=== PATIENT | female | born 1970 | race Caucasian/White ===

== ENCOUNTER → 2019-05-21 09:02 | Outpatient (CLI) | payer OTHER, SELFPAY ==
[2019-05-21 14:30] LABS: Alanine Aminotransferase 15 U/L (12-78); Albumin Level 3.8 gm/dL (3.4-5.0); Alkaline Phosphatase 71 U/L (46-116); Aspartate Amino Transferase 13 U/L (15-37); Bilirubin,Direct 0.1 mg/dL (0.0-0.2); Bilirubin,Indirect 0.3 mg/dL (0.0-0.9); Bilirubin,Total 0.4 mg/dL (0.2-1.0); Chol/HDL Ratio 3.4 (1-3.5); Cholesterol 153 mg/dL (140-200); HDL Cholesterol 45 mg/dL (29-89); LDL Cholesterol 90 mg/dL (0-130); Triglycerides 91 mg/dL (30-200); VLDL Cholesterol 18 mg/dL (0-40)
== END ==
PROVIDERS: PCP Nurse Practitioner Family; Visit Provider Urology
DX: I25.10 Atherosclerotic heart disease of native coronary artery without angina pectoris (principal); E78.2 Mixed hyperlipidemia; I11.9 Hypertensive heart disease without heart failure
CPT/HCPCS: 36415; 80061; 80076

== ENCOUNTER → 2020-04-22 08:17 | Outpatient (CLI) | payer OTHER, SELFPAY ==
[2020-04-22 14:28] LABS: Alanine Aminotransferase 12 U/L (12-78); Alkaline Phosphatase 73 U/L (38-126); Aspartate Amino Transferase 21 U/L (14-36); Bilirubin,Direct 0.1 mg/dl (0.0-0.4); Bilirubin,Indirect 0.6 mg/dL (0.0-0.9); Bilirubin,Total 0.7 mg/dl (0.2-1.3); Bilirubin,Unconjugated 0.5 mg/dL (0.0-1.1); Total Protein,Serum 6.6 g/dl (6.3-8.2)
[2020-04-22 14:29] LABS: Chol/HDL Ratio 2.5 (1-3.5); Cholesterol 136 mg/dl (140-200); HDL Cholesterol 54 mg/dl (40-60); Triglycerides 79 mg/dl (30-150); VLDL Cholesterol 16 mg/dL (0-40)
[2020-04-22 14:40] LABS: Direct LDL Cholesterol 72.26 mg/dL (100-129)
== END ==
PROVIDERS: PCP Nurse Practitioner Family; Visit Provider Urology
DX: E78.5 Hyperlipidemia, unspecified (principal); I11.9 Hypertensive heart disease without heart failure; I25.10 Atherosclerotic heart disease of native coronary artery without angina pectoris; F17.200 Nicotine dependence, unspecified, uncomplicated; Z95.5 Presence of coronary angioplasty implant and graft
CPT/HCPCS: 36415; 80061; 80076

== ENCOUNTER → 2021-02-03 07:34 | Outpatient (CLI) | payer OTHER, SELFPAY ==
--- NOTE | 2021-02-03 07:42 | MM_ITS ---
PROCEDURE INFORMATION: Exam: MG Screening 3D Mammography Exam date and time: 02/03/2021 7:42 AM Age: 50 years old Clinical indication: Encounter for screening mammogram for malignant neoplasm of breast TECHNIQUE: Imaging protocol: Screening tomosynthesis and 2D mammography including computer-aided detection (CAD) when performed. COMPARISON: No relevant prior studies available. FINDINGS: MAMMOGRAPHY: Breast composition: The breast tissue is heterogeneously dense, which may obscure small masses. Mass: 2.5 cm ovoid mass in the posterior third of the left upper outer quadrant may be on the basis of underlying cystic change Architectural distortion: Questionably noted in the posterior third of the right upper outer quadrant better seen in the craniocaudal projection. Calcifications: No suspicious calcifications. Asymmetric density: None. Skin thickening: None. Axillary adenopathy: None. IMPRESSION: 1. Patient to be recalled for left breast ultrasound for further evaluation of a left breast mass. 2. Patient to be recalled for spot compression views of the right breast in the CC and MLO projections and right breast ultrasound for further evaluation of questionable distortion. ASSESSMENT: BI-RADS Category 0: Incomplete- Need Additional Imaging Evaluation and/or Prior Mammograms for Comparison
== END ==
PROVIDERS: PCP Nurse Practitioner Family; Visit Provider Nurse Practitioner Family
DX: Z12.31 Encounter for screening mammogram for malignant neoplasm of breast (principal)
CPT/HCPCS: 77063; 77067

== ENCOUNTER → 2021-02-20 13:30 | Outpatient (CLI) | payer OTHER, SELFPAY ==
--- NOTE | 2021-02-20 13:34 | MM_ITS ---
PROCEDURE INFORMATION: Exam: US Right Breast, Complete US Left Breast, Complete MG Right Diagnostic Breast Tomosynthesis Exam date and time: 02/20/2021 1:34 PM Age: 50 years old Clinical indication: patient recalled on the basis of a screening mammogram dated 02/03/2021 for further evaluation of a questionable focus of distortion in the right upper outer quadrant as well as for further evaluation of a left breast mass TECHNIQUE: Imaging protocol: Complete ultrasound of all four quadrants of the Right breast and the retroareolar regions, including ultrasound of the axillae when performed. Complete ultrasound of all four quadrants of the Left breast and the retroareolar regions, including ultrasound of the axillae when performed. Right Diagnostic tomosynthesis and 2D mammography including computer-aided detection (CAD) when performed. Unilateral or bilateral exam. COMPARISON: MG MM DIG SCREENING MAMM BI W/CAD 02/03/2021 8:03 AM FINDINGS: MAMMOGRAPHY: Digital diagnostic spot compression views of the right breast demonstrate normal overlapping fibroglandular structures without persistent mass or distortion identified. ULTRASOUND: Sonographic images of both breasts including the retroareolar regions, all 4 quadrants and the axilla demonstrates a 2.3 cm cyst in the left 2 o'clock axis corresponding to the mass on mammography. Additional 0.7 cm cyst in the left upper outer quadrant. A cluster of cysts with a combined dimension of 0.9 cm is noted in the infra-areolar region. Sonographic images of the right breast demonstrates a cluster of cysts with a combined dimension of 1.1 cm in the 10 o'clock axis. 0.4 cm cyst in the right 2 o'clock axis. No architectural distortion or acoustical shadowing. No skin thickening or axillary adenopathy. IMPRESSION: No mammographic or sonographic evidence of malignancy. Mass on screening mammography in the left breast corresponds to underlying cystic change sonographically. No persistent distortion on additional imaging of the right upper outer quadrant. Annual bilateral mammographic screening is recommended unless otherwise clinically indicated. ASSESSMENT: BI-RADS Category 2: Benign
== END ==
PROVIDERS: PCP Nurse Practitioner Family; Visit Provider Nurse Practitioner Family
DX: R92.2 Inconclusive mammogram (principal)
CPT/HCPCS: 76641; 77061; 77065; G0279

== ENCOUNTER → 2022-04-15 06:02 | Outpatient (CLI) | payer OTHER, SELFPAY ==
[2022-04-15 14:53] LABS: Alanine Aminotransferase 14 U/L (12-78); Albumin Level 3.6 g/dl (3.5-5.0); Alkaline Phosphatase 94 U/L (38-126); Aspartate Amino Transferase 21 U/L (14-36); Chol/HDL Ratio 3.1 (1-3.5); Cholesterol 129 mg/dl (140-200); HDL Cholesterol 41 mg/dl (40-60); Total Protein,Serum 6.1 g/dl (6.3-8.2); Triglycerides 99 mg/dl (30-150); VLDL Cholesterol 20 mg/dL (0-40)
[2022-04-15 18:03] LABS: Bilirubin,Direct 0.1 mg/dl (0.0-0.4)
[2022-04-15 18:04] LABS: Bilirubin,Total 0.1 mg/dl (0.2-1.3)
[2022-04-17 07:14] LABS: Direct LDL Cholesterol 63 mg/dL (100-129)
== END ==
PROVIDERS: PCP Nurse Practitioner Family; Visit Provider Nurse Practitioner
DX: I25.10 Atherosclerotic heart disease of native coronary artery without angina pectoris (principal); I11.9 Hypertensive heart disease without heart failure; E78.2 Mixed hyperlipidemia; F17.200 Nicotine dependence, unspecified, uncomplicated; Z95.5 Presence of coronary angioplasty implant and graft
CPT/HCPCS: 36415; 80061; 80076

== ENCOUNTER → 2023-05-02 12:27 | Outpatient (CLI) | payer BC, SELFPAY ==
--- NOTE | 2023-05-02 12:33 | MM_ITS ---
PROCEDURE INFORMATION: Exam: MG Bilateral Screening 3D Mammography Exam date and time: 05/02/2023 12:53 PM Age: 52 years old Clinical indication: Screening. TECHNIQUE: Imaging protocol: Bilateral Screening tomosynthesis and 2D mammography including computer-aided detection (CAD) when performed. COMPARISON: 1. MG MM DIG MAMM DX UNILAT RT CAD 02/20/2021 1:37 PM 2. MG MM DIG SCREENING MAMM BI W/CAD 02/03/2021 8:03 AM 3. US BREAST LT COMPLETE 02/20/2021 2:23 PM 4. US BREAST RT COMPLETE 02/20/2021 2:15 PM FINDINGS: MAMMOGRAPHY: Breast composition: The breasts are heterogeneously dense, which may obscure small masses. Mass: Questionable 1.0 cm mass/circumscribed asymmetry in the lower left breast, middle 3rd, 5 to 6 cm from the nipple, MLO frame 31, not identified in the CC projection. Interval resolved mass in the upper left breast, shown to be a cyst on 02/20/2021. Architectural distortion: None. Calcifications: No suspicious calcifications. Asymmetric density: None. Skin thickening: None. Axillary adenopathy: None. IMPRESSION: Patient will be recalled left diagnostic spot compression in the MLO and full field lateral as well as sonography in the lower left breast for further evaluation questionable left breast mass. ASSESSMENT: BI-RADS Category 0: Incomplete- Need Additional Imaging Evaluation and/or Prior Mammograms for Comparison
== END ==
PROVIDERS: PCP Nurse Practitioner Family; Visit Provider Nurse Practitioner Family
DX: Z12.31 Encounter for screening mammogram for malignant neoplasm of breast (principal)
CPT/HCPCS: 77063; 77067

== ENCOUNTER → 2023-05-11 13:38 | Outpatient (CLI) | payer BC, SELFPAY ==
--- NOTE | 2023-05-11 13:46 | MM_ITS ---
PROCEDURE INFORMATION: Exam: US Left Breast, Complete MG Left Diagnostic Breast Tomosynthesis Exam date and time: 05/11/2023 2:10 PM Age: 52 years old Clinical indication: Patient recalled on the basis of a screening mammogram for further evaluation; Left breast; mass TECHNIQUE: Imaging protocol: Complete ultrasound of all four quadrants of the left breast and the retroareolar regions, including ultrasound of the axilla when performed. Left Diagnostic tomosynthesis and 2D mammography including computer-aided detection (CAD) when performed. Unilateral or bilateral exam. COMPARISON: US BREAST LT COMPLETE 02/20/2021 2:23 PM FINDINGS: MAMMOGRAPHY: Digital diagnostic spot compression views of the left lower outer quadrant demonstrate a persistent lobulated 1.0 cm mass best seen in the MLO projection inferiorly. ULTRASOUND: Sonographic images of the left breast including the retroareolar region, all 4 quadrants and the axilla do not demonstrate any solid masses. Scattered cystic changes noted including a cluster of cysts with a combined dimension of 1.1 cm in the 6 o'clock axis 2 cm from the nipple most closely corresponding to the mass on mammography. No architectural distortion or acoustical shadowing. No skin thickening or axillary adenopathy. IMPRESSION: Mass on screening mammography corresponds to underlying cystic change sonographically. There is no mammographic evidence of malignancy.Annual bilateral mammographic screening is recommended unless otherwise clinically indicated. ASSESSMENT: BI-RADS Category 2: Benign
== END ==
LOC: RAD 13:41
PROVIDERS: PCP Nurse Practitioner Family; Visit Provider Nurse Practitioner Family
DX: R92.2 Inconclusive mammogram (principal)
CPT/HCPCS: 76641; 77061; 77065; G0279

== ENCOUNTER 2024-05-25 07:37 | Outpatient (CLI) | payer BC, SELFPAY ==
--- NOTE | 2024-05-25 08:05 | MM_ITS ---
PROCEDURE INFORMATION: Exam: MG Bilateral Screening 3D Mammography Exam date and time: 05/25/2024 7:49 AM Age: 53 years old Clinical indication: Screening examination TECHNIQUE: Imaging protocol: Bilateral Screening tomosynthesis and 2D mammography including computer-aided detection (CAD) when performed. COMPARISON: 1. MG MM DIG MAMM DX UNILAT LT CAD 05/11/2023 1:34 PM 2. MG MM DIG SCREENING MAMM BI W/CAD 05/02/2023 12:53 PM FINDINGS: MAMMOGRAPHY: Breast composition: The breasts are heterogeneously dense, which may obscure small masses. Mass: No suspicious masses. Architectural distortion: None. Calcifications: No suspicious calcifications. Asymmetric density: None. Skin thickening: None. Axillary adenopathy: None. IMPRESSION: No mammographic evidence of malignancy. Annual screening is recommended unless otherwise clinically indicated. ASSESSMENT: BI-RADS Category 1: Negative.
== END 2024-05-25 23:59 | disposition home or self-care (01) ==
LOC: RAD 07:38
PROVIDERS: PCP Nurse Practitioner Family; Visit Provider Nurse Practitioner Family
DX: Z12.31 Encounter for screening mammogram for malignant neoplasm of breast (principal)
CPT/HCPCS: 77063; 77067

== ENCOUNTER 2025-04-15 09:00 | Outpatient (CLI) | payer BC, SELFPAY ==
[2025-04-15 09:30] LABS: Hematocrit 37.6 % (37.0-47.0); Hemoglobin 12.3 g/dL (12.2-16.2); Immature Granulocytes % 0.2 %; Mean Corpuscular HGB Conc 32.7 g/dL (31.8-35.4); Mean Corpuscular Hemoglobin 28.8 pg (27.0-31.2); Mean Corpuscular Volume 88.1 fl (81-99); Nucleated Red Blood Cells % 0 %; Platelet Count 335 K/mm3 (142-424); Red Blood Count 4.27 M/mm3 (4.20-5.40); Red Cell Distribution Width-SD 41.8 fL; White Blood Count 6.3 K/mm3 (4.8-10.8)
[2025-04-15 09:47] LABS: Albumin Level 3.6 g/dl (3.5-5.0); Chloride 99 mmol/L (98-107); Potassium 4.3 mmoL/L (3.5-5.1); Sodium 133 mmol/L (136-145)
[2025-04-15 09:49] LABS: Blood Urea Nitrogen 8 mg/dl (7-17); Creatinine,Serum 0.80 mg/dl (0.52-1.04); Estimated Glomerular Filt Rate 75 ml/min (>60); GFR (African American) 91 ML/MIN (>60)
[2025-04-15 09:50] LABS: Alanine Aminotransferase 13 U/L (12-78); Alkaline Phosphatase 93 U/L (38-126); Anion Gap 9.3 mEq/L (5-15); Aspartate Amino Transferase 20 U/L (14-36); Bilirubin,Direct 0.1 mg/dl (0.0-0.4); Bilirubin,Indirect 0.3 mg/dL (0.0-0.9); Bilirubin,Total 0.4 mg/dl (0.2-1.3); Bilirubin,Unconjugated 0.4 mg/dL (0.0-1.1); Calcium 10.2 mg/dl (8.4-10.2); Carbon Dioxide 29 mmol/L (22.0-30.0); Cholesterol 158 mg/dl (140-200); Glucose 78 mg/dl (74-100); Magnesium 1.8 mg/dl (1.6-2.3); Total Protein,Serum 7.0 g/dl (6.3-8.2); Triglycerides 80 mg/dl (30-150)
[2025-04-15 09:51] LABS: HDL Cholesterol 59 mg/dl (40-60)
[2025-04-15 10:07] LABS: Free T4 (Free Thyroxine) 1.47 ng/dl (0.78-2.19)
[2025-04-15 11:33] LABS: Thyroid Stimulating Hormone 0.84 uIU/mL (0.465-4.68)
== END 2025-04-15 23:59 | disposition home or self-care (01) ==
LOC: LAB 09:01
PROVIDERS: PCP Nurse Practitioner Family; Visit Provider Nurse Practitioner Family
DX: I25.10 Atherosclerotic heart disease of native coronary artery without angina pectoris (principal); I11.9 Hypertensive heart disease without heart failure
CPT/HCPCS: 36415; 80048; 80061; 80076; 83735; 84439; 84443; 85025

== ENCOUNTER 2025-04-25 08:21 | Outpatient (CLI) | payer BC, SELFPAY ==
--- NOTE | 2025-04-25 08:45 | CA_ITS ---
APPROVED REPORT EXAM: Comprehensive 2D, Doppler, and color-flow Echocardiogram Driver Manager: Greta Grayson RVT Ht: 5 ft 9 in Wt: 177lbs BSA: 1.96 BP: 122/69 mmHg Indications: CORONARY ARTERY DISEASE 2D Dimensions IVSd 1.56 cm F: 0.6-1.0 LVEF (Visual) 85.40 % PWd 1.13 cm F: 0.6 - 1.0 LA Volume 25.00 mL LVDd 4.62 cm F: 3.9 - 5.3 LA Volume Index 12.76 mL/m2 (M/F) 16-34 LVDs 2.10 cm F: 2.2 - 3.5 EF AP4 60.00 % Left Atrium 3.57 cm F: 2.7 - 3.8 GL Strain -24.5 % RVID Base (AP4) 2.52 cm (M/F) 2.5-4.1 LVOT 2.17 cm (M/F) 1.5-2.5 M-Mode Dimensions LVDd 4.62 cm (3.5-5.7) Ao Diam 3.05 cm (2.0-3.7) LVDs 2.10 cm (3.5-5.7) IVSd 1.56 cm (0.6-1.1) PWd 1.13 cm (0.6-1.1) FS 54.50% TAPSE 2.26 (<1.7) LV Diastology E Decel Time 178 (160-240 msec) E/A Ratio 1.0 MED E' 11.3 (>= 7 cm/sec) E'/MED E' Ratio 6.99 (<= 14) LAT E' 11.1 (>= 10 cm/sec) E/LAT E' Ratio 7.12 (<= 14) Aortic Valve LVOT Max 114.0 (70-110 cm/s) MADYSON Index 1.56 cm2/m2 LVOT VTI 23.93 cm AoV Peak Albino. 141.0 (50-130 cm/s) AO Peak GR. 8.10 mmHg AO Mean GR. 3.90 (<5 mmHg) AO VTI 29.0 (18-25 cm) MADYSON (VTI) 3.06 (2.5-4.5 cm2) Mitral Valve MV E Max Albino. 79.0 (40-130 cm/s) MV A Velocity 77.0 (40-130 cm/s) E/A Ratio 1.03 MV Decel. Time 178 (160-240 ms) Left Ventricle The left ventricle is normal size. Left ventricular systolic function is normal. The left ventricular ejection fraction is within the normal range. There is normal left ventricular wall thickness. There is normal LV segmental wall motion. The left ventricular diastolic function is normal. LVEF is 55% Right Ventricle The right ventricle is normal size. The right ventricular systolic function is normal. Atria The left atrium size is normal. The right atrium size is normal. There is no color Doppler evidence of interatrial shunt. Aortic Valve The aortic valve is mildly thickened. There is no hemodynamically significant aortic valvular stenosis. No aortic regurgitation is present. Mitral Valve The mitral valve is normal in structure. No evidence of mitral valve stenosis. Trace mitral regurgitation is present. Tricuspid Valve The tricuspid valve leaflets are thin and pliable. Trace tricuspid regurgitation. There is insufficient TR jet to estimate RVSP. Pulmonic Valve The pulmonary valve is grossly normal in structure. Trace pulmonic valve regurgitation is present. Great Vessels The aortic root is normal in size. IVC is normal in size and collapses >50% with inspiration. Pericardium Trivial, anterior pericardial effusion is present. No echo indications of tamponade. Other Information Study Quality: Fair Conclusion Normal biventricular systolic function. No significant valvular stenosis or regurgitation. Trivial, anterior pericardial effusion is present. No echo indications of tamponade. Electronically signed by : Kathryn Calabrese MD 04/25/2025 10:31:28
== END 2025-04-25 23:59 | disposition home or self-care (01) ==
LOC: RT 08:22
PROVIDERS: PCP Nurse Practitioner Family; Visit Provider Nurse Practitioner Family
DX: I25.10 Atherosclerotic heart disease of native coronary artery without angina pectoris (principal); I11.9 Hypertensive heart disease without heart failure; I25.2 Old myocardial infarction
CPT/HCPCS: 93306